=== PATIENT | female | born 1965 | race American Indian/Alaskan Native ===

== ENCOUNTER 2017-10-14 15:08 | Outpatient (CLI) | payer OTHER ==
--- NOTE | 2017-10-14 16:24 | XRay Report ---
XRAY CHEST TWO VIEWS: 10/14/17 15:08:00 CLINICAL: Chronic cough. COMPARISON: None FINDINGS: Normal heart and pulmonary vasculature.Aortic tortuosity. The lungs are normally expanded and clear.Mild scoliosis and degenerative changes in the spine. IMPRESSION: No acute cardiopulmonary process. Hypertensive changes in the aorta.No explanation for cough.
== END 2017-10-14 15:09 | disposition home or self-care (01) ==
LOC: SPVIMAG 15:08
PROVIDERS: ATTEND Family Medicine
DX: R05 Cough (principal); M47.894 Other spondylosis, thoracic region
CPT/HCPCS: 71020